=== PATIENT | female | born 1995 | race African-American/Black ===

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

== ENCOUNTER 2018-02-18 12:08 | Emergency (ER) | payer MEDICAID | END 2018-02-18 13:39 | disposition home or self-care (01) | LOC: D.ER 12:08 | DX: S82.401B Unspecified fracture of shaft of right fibula, initial encounter for open fracture type I or II (principal); W13.8XXA Fall from, out of or through other building or structure, initial encounter; Y93.89 Activity, other specified; Y92.019 Unspecified place in single-family (private) house as the place of occurrence of the external cause ==